=== PATIENT | female | born 1955 | race Caucasian/White ===

== ENCOUNTER 2017-07-14 13:18 | Emergency (ER) | payer BC ==
--- NOTE | 2017-07-14 14:19 | UC ---
Respiratory Complaint HPI - HPI Summary HPI Summary: 61 y/o female presents to the urgent care c/o nasal congestion, PA , sore throat and mild cough for the past week. However symptoms have worsen for the past 4 days. Sore throat is 2/10 associated with dry cough, She has taking sinus cold and flu OTC medication to alleviate symptoms. Her urine smells very strong despite drinking plenty of fluids. Pt denies fever, SOB, chest pain, abdominal pain, back pain, lower back pain, pelvic pain, dysuria, N/V/D - History of Current Complaint Stated Complaint: UPPER RESPIRATORY COMPLAINT Time Seen by Provider: 07/14/17 14:18 Hx Obtained From: Patient ?: No Onset/Duration: Gradual Onset, Lasting Weeks - 1 week, Still Present, Worse Since - 4 days ago Timing: Constant Severity Initially: Mild Severity Currently: Moderate Pain Intensity: 2 - sore throat Pain Scale Used: 0-10 Numeric Character: Cough: Nonproductive Aggravating Factors: Recumbent Position Alleviating Factors: OTC Meds Associated Signs And Symptoms: Positive: URI, Nasal Congestion, Sinus Discomfort. Negative: Dyspnea, Fever, Chills - Risk Factors Pulmonary Embolism Risk Factors: Negative Cardiac Risk Factors: Negative Pseudomonas Risk Factors: Negative Tuberculosis Risk Factors: Negative - Allergies/Home Medications Allergies/Adverse Reactions: Allergies Allergy/AdvReac Type Severity Reaction Status Date / Time Ampicillin Allergy Hives Verified 07/14/17 14:38 Penicillins Allergy Hives Verified 07/14/17 14:38 Sulfa Antibiotics Allergy Hives Verified 07/14/17 14:38 Home Medications: Home Medications Cold And Sinus Med 1 tab PO Q6H PRN 07/14/17 [History Confirmed 07/14/17] PMH/Surg Hx/FS Hx/Imm Hx Previously Healthy: Yes - Pt denies PMHX - Family History Known Family History: Positive: Hypertension - Social History Occupation: Employed Full-time Lives: With Family Review of Systems Constitutional: Other - body aches Skin: Negative Eyes: Negative ENT: Sore Throat, Nasal Discharge, Sinus Congestion Respiratory: Cough - dry Cardiovascular: Negative Gastrointestinal: Negative Genitourinary: Other - strong urine smell on urination Motor: Negative Neurovascular: Negative Musculoskeletal: Negative Neurological: Headache Psychological: Negative Is Patient Immunocompromised?: No All Other Systems Reviewed And Are Negative: Yes Physical Exam Triage Information Reviewed: Yes - Additional Comments Vitals: reviewed General: Well developed, well-nourished female patient with NAD. Head and face: Normocephalic and atraumatic, Positive tenderness over the frontal and maxillary sinuses.. Eyes: PERRLA, EOMI x 2. Normal conjunctiva. No eye discharge. ENT: Ears and TM with normal limits. Nose: with yellowish discharge and erythematous mucosa. Pharynx with erythema, no exudate. Neck: Supple, no JVD, no carotid bruits and no lymphadenopathy. Lungs: clear, no rales, no rhonchi, no wheezes. CVS: RRR, S1 and S2 present no murmurs or gallops appreciated. Abdomen: soft nontender with positive bowel sounds. Extremities: no edema noted. Neuro: WNL. Skin: warm and dry Respiratory Course/Dx - Course Course Of Treatment: 61 y/o female presents to the urgent care c/o nasal congestion, PA , sore throat and mild cough for the past week. However symptoms have worsen for the past 4 days. Sore throat is 2/10 associated with dry cough, She has taking sinus cold and flu OTC medication to alleviate symptoms. Her urine smells very strong despite drinking plenty of fluids. Pt denies fever, SOB , chest pain, abdominal pain, back pain, lower back pain, pelvic pain, dysuria, N/V/D. Hx obtained. Pt with pharyngitis on examination. Rapid strep ordered, result: negative.Influenza A&B ordered: result: Influenza B positive.UA: + 2blood .Pt Rx Tamiflu and ibuprofen PO to alleviates symptoms. Advised on hand washing and wear a mask to avoid spreading. Pt advised to rest, increase fluid intake, eat well and avoid strenuous exercise.Pt's BP is elevated today advised to decrease salt in diet, monitor BP and f/u with PCP for further management. If symptoms do not improve or worsen advised to return to the urgent care or f/ u with her PCP for further evaluation and treatment. Pt understood and agreed with plan of care. - Differential Dx/Diagnosis Differential Diagnosis/HQI/PQRI: Asthma, Bronchitis, Influenza, Laryngitis, Lower Resp Infection, Sinusitis, Other - pharyngitis, UTI Provider Diagnoses: 1- Influenza B. 2- Elevated BP w/o Hx of HTN Discharge - Discharge Plan Condition: Stable Disposition: HOME Prescriptions: Ibuprofen TAB* [Motrin TAB* 800 MG] 800 mg PO Q6H PRN #20 tab PRN Reason: Headache Oseltamivir CAP* [Tamiflu CAP*] 75 mg PO BID #10 cap Patient Education Materials: Influenza (ED), Low-Sodium Diet (ED) Forms: *Work Release Referrals: No Primary Care Phys,NOPCP [Primary Care Provider] - 3 Days Additional Instructions: 1- Please take the full course of the antiviral to avoid resistance. Encourage hand washing and wear a mask to avoid spreading. 2-Please continue taking Ibuprofen PO q6-8hrs prn as instructed after meals to alleviate fever, and sore throat. Increase fluid intake, eat well, rest and avoid strenuous exercise 3-If symptoms do not improve or worsen please return to the urgent care or f/u with your PCP in 2 days for further evaluation and treatment. 4-Your BP is elevated today. please decrease salt in your diet, monitor BP and if it continues to be elevated please f/u with your PCP for further management
[2017-07-14 14:37] VITALS: BP 156/102
== END 2017-07-14 15:43 | disposition home or self-care (01) ==
LOC: UCCORT 13:18
DX: J10.1 Influenza due to other identified influenza virus with other respiratory manifestations (principal); R03.0 Elevated blood-pressure reading, without diagnosis of hypertension; Z88.0 Allergy status to penicillin; Z88.2 Allergy status to sulfonamides
CPT/HCPCS: 81003; 87502; 87651; 99202; G0463

== ENCOUNTER 2018-08-03 13:44 | Emergency (ER) | payer BC ==
[2018-08-03 14:54] VITALS: BP 156/86
--- NOTE | 2018-08-03 15:57 | UC ---
Complaint Female HPI - HPI Summary HPI Summary: 62-year-old female presents with onset of dysuria, frequency, urgency, and sensation of inability to empty bladder yesterday. Denies fever, chills, abdominal pain, back or flank pain, nausea, vomiting, or hematuria. - History Of Current Complaint Chief Complaint: UCGU Stated Complaint: URINARY COMPLAINT Time Seen by Provider: 08/03/18 15:52 Hx Obtained From: Patient Hx Last Menstrual Period: n/a Pain Intensity: 0 - Allergies/Home Medications Allergies/Adverse Reactions: Allergies Allergy/AdvReac Type Severity Reaction Status Date / Time ampicillin Allergy Hives Verified 08/03/18 14:55 Penicillins Allergy Hives Verified 08/03/18 14:55 Sulfa (Sulfonamide Allergy Hives Verified 08/03/18 14:55 Antibiotics) PMH/Surg Hx/FS Hx/Imm Hx Previously Healthy: Yes - Surgical History Surgical History: Yes Surgery Procedure, Year, and Place: right oopherectomy salpingectomy, appy 1966 ; left ovarian cysts, tubal 1984 - Family History Known Family History: Positive: Hypertension - Social History Alcohol Use: None Substance Use Type: None Smoking Status (MU): Light Every Day Tobacco Smoker Type: Cigarettes Amount Used/How Often: 1/2 PPD Review of Systems All Other Systems Reviewed And Are Negative: Yes Constitutional: Negative: Fever, Chills Respiratory: Positive: Negative Cardiovascular: Positive: Negative Gastrointestinal: Negative: Abdominal Pain, Vomiting, Diarrhea, Nausea Genitourinary: Positive: Dysuria, Frequency, Urgency. Negative: Hematuria, Vaginal/Penile Discharge, Ulceration/Lesion, Abnormal Bleeding Musculoskeletal: Positive: Negative Neurological: Positive: Negative Is Patient Immunocompromised?: No Physical Exam - Summary Physical Exam Summary: GENERAL APPEARANCE: Well developed, well nourished, alert and cooperative, and appears to be in no acute distress. CARDIAC: Normal S1 and S2. No S3, S4 or murmurs. Rhythm is regular. There is no peripheral edema, cyanosis or pallor. Extremities are warm and well perfused. Capillary refill is less than 2 seconds. LUNGS: Clear to auscultation without rales, rhonchi, wheezing or diminished breath sounds. ABDOMEN: Positive bowel sounds. Soft, nondistended, nontender. No guarding or rebound. No masses or hepatosplenomegally. No CVA tenderness. MUSKULOSKELETAL: ROM intact to all extremities. No joint erythema or tenderness. Normal muscular development. Normal gait. SKIN: Skin normal color, texture and turgor with no lesions or eruptions. Triage Information Reviewed: Yes Vital Signs: Initial Vital Signs Temp 98.4 F 08/03/18 14:49 Pulse 83 08/03/18 14:49 Resp 16 08/03/18 14:49 BP 156/86 08/03/18 14:49 Pulse Ox 98 08/03/18 14:49 Vital Signs Reviewed: Yes Diagnostics - Laboratory Diagnostic Studies Completed/Ordered: POC UA 3+ blood, 2+ luekocyte esterase, + nitrites. Urine culture pending. Complaint Female Dx - Course Course Of Treatment: 62-year-old female presents with onset of dysuria, frequency, urgency, and sensation of inability to empty bladder yesterday. Denies fever, chills, abdominal pain, back or flank pain, nausea, vomiting, or hematuria. Afebrile. Hypertensive otherwise vital signs stable. Exam reveals all of her adult female in no acute distress with an overall unremarkable exam. [id number] urinalysis shows 3+ blood, 2+ leukocyte esterase, positive nitrites. A urine culture was sent and is pending. Will treat for a urinary tract infection with Macrobid 1 tablet twice a day 5 days as well as Pyridium 1 tablet 3 times a day for 2 days to help with the discomfort. Patient is to follow-up with her primary care provider in 5-7 days if no improvement in symptoms. Anticipatory guidance and warning symptoms were reviewed with the patient. Verbalizes understanding and agrees with plan of care. - Differential Dx/Diagnosis Differential Diagnosis/HQI/PQRI: Renal Colic, Ureteral Stone, Urinary Tract Infection Provider Diagnosis: UTI (urinary tract infection) Discharge - Sign-Out/Discharge Documenting (check all that apply): Patient Departure All imaging exams completed and their final reports reviewed: No Studies - Discharge Plan Condition: Stable Disposition: HOME Prescriptions: Nitrofurantoin Monohyd/M-Cryst [Macrobid 100 mg Capsule] 100 mg PO BID #10 cap Phenazopyridine TAB* [Pyridium 100 mg TAB*] 100 mg PO TID #6 tab Patient Education Materials: Urinary Tract Infection in Women (ED) Referrals: No Primary Care Phys,NOPCP [Primary Care Provider] - [facility] [Outside] Additional Instructions: Your urine test in the clinic today is suggestive of a urinary tract infection. We will start you on an antibiotic to treat for the infection. We will also send a urine culture today to see what bacteria grow out and make sure the antibiotic you were prescribed is appropriate to treat the infection. It will take 48-72 hours to get these results. We will contact you if there is any change in your treatment plan. Start nitrofurantoin 1 tab twice a day for 5 days. Take Pyridium 1 tablet every 8 hours for next 2 days to help with the discomfort. This medication will turn your urine an orange color. Drink plenty of fluids. To help prevent urinary tract infections: 1) Be sure to wipe from front to back. 2) Urinate immediately after any sexual intercourse. 3) Avoid taking bubble baths. Return here or follow up with your primary care provider in 5-7 days if symptoms persist. Your blood pressure was noted to be elevated in the clinic today. It is recommended that you have this rechecked by a primary care provider within 4 weeks. I have provided you with the number for [facility]'s physician referral service if you need assistance with establishing with a provider. Seek immediate medical attention in the emergency room if you develop fever greater than 100.5 F, have severe abdominal pain, persistent vomiting, or any worsening of symptoms. - Billing Disposition and Condition Condition: STABLE Disposition: Home - Attestation Statements Provider Attestation: Patient not seen or examined by me. I was available for consult. I did not diagnose or disposition this patient.
== END 2018-08-03 16:09 | disposition home or self-care (01) ==
LOC: UCCORT 13:44
DX: N39.0 Urinary tract infection, site not specified (principal); I10 Essential (primary) hypertension; F17.210 Nicotine dependence, cigarettes, uncomplicated; Z88.0 Allergy status to penicillin; Z88.2 Allergy status to sulfonamides
CPT/HCPCS: 81003; 87077; 87086; 87186; 99212; G0463